=== PATIENT | male | born 1940 | race Caucasian/White ===

== ENCOUNTER → 2017-12-28 09:35 | Outpatient (CLI) | payer MEDICARE, OTHER, SELFPAY ==
[2017-12-28 10:22] LABS: INR 1.3 (0.9-1.3); Prothrombin Time 14.7 SECONDS (10.1-12.7)
[2017-12-28 10:24] LABS: PTT Partial Thromboplastin Tim 30 SECONDS (26.4-36.2)
[2017-12-28 10:33] LABS: Alanine Aminotransferase 58 IU/L (21-72); Aspartate Aminotransferase 45 IU/L (17-59); Blood Urea Nitrogen 18 mg/dL (9-20); Calcium 8.9 mg/dL (8.4-10.2); Carbon Dioxide 30 mmol/L (22-32); Chloride 105 mmol/L (98-107); Cholesterol 127 mg/dL (140-199); Estimated Glomerular Filt Rate > 60.0 mL/min (>60); Glucose 118 mg/dL (80-110); HDL Cholesterol 44 mg/dL (40-60); HEMOLYSIS < 15 (0-50); LDL Cholesterol Calculated 62 mg/dL (<100); Potassium 4.2 mmol/L (3.4-5.1); Sodium 144 mmol/L (137-145); Triglycerides 104 mg/dL (35-150)
[2017-12-28 10:47] LABS: Free T3, Triiodothyronine Free 3.37 pg/mL (2.77-5.27)
[2017-12-28 11:01] LABS: TSH w/ Reflex to FT4 2.05 uIU/mL (0.47-4.68)
== END ==
PROVIDERS: Family Provider Internal Medicine Cardiovascular Disease; PCP Internal Medicine; Visit Provider Internal Medicine
DX: E78.00 Pure hypercholesterolemia, unspecified (principal); E04.1 Nontoxic single thyroid nodule; I10 Essential (primary) hypertension; I82.409 Acute embolism and thrombosis of unspecified deep veins of unspecified lower extremity
CPT/HCPCS: 36415; 80048; 80061; 84443; 84450; 84460; 84481; 85610; 85730

== ENCOUNTER → 2017-12-30 09:33 | Outpatient (CLI) | payer MEDICARE, OTHER, SELFPAY ==
--- NOTE | 2017-12-30 | DI.US.S_ITS ---
PROCEDURE: US FINE NEEDLE ASPIRATION INDICATIONS: THYROID NODULE TECHNIQUE: The indications, alternatives, benefits, risks, and complications of the procedure were explained to the patient. Written informed consent was obtained and placed in the chart. The thyroid region was examined sonographically and a site was chosen for ultrasound guided percutaneous sampling. The skin was prepared and draped in the usual fashion, and anesthetized with 1% lidocaine infiltrated from the skin down to the thyroid gland. Multiple passes were then performed, with contents emptied into an appropriate pathology specimen container. A bandage was applied to the area of access at completion of the study. COMPARISON: None. FINDINGS: Location(s) of lesion(s) sampled: Isoechoic right thyroid nodule Junction: 22 and 25 gauge hypodermic needles. Number of passes: 12 Medications: 1% lidocaine for local anaesthesia. Complications: None. IMPRESSION: Successful ultrasound-guided thyroid nodule fine needle aspiration, with cytology results pending. Please see chart below for management recommendations based on cytology results. [facility] ReportingRecommendationsNon-diagnostic* Repeat US-guided FNA, with on-site cytology evaluation if possible. * Repeated non-diagnostic nodules without high suspicion US features: close observation vs surgical consult. * Consider surgery if nodule has high suspicion US features, grows >20% in 2 dimensions on followup, or patient has clinical risk factors for malignancy. Benign* If nodule has high suspicion US features: repeat US and FNA within 12 months. * If nodule has low to intermediate suspicion US features: repeat US at 12-24 months. If nodule grows (20% increase in at least 2 dimensions, with minimal increase of 2 mm or >50% change in volume), or development of new suspicious US features, then repeat FNA or continue followup. * If nodule has very low suspicion US features: followup US at >24 months. Atypia of undetermined significance, follicular lesion of undetermined significanceRepeat FNA, molecular testing, followup US, or surgical consult.Follicular neoplasm, suspicious for follicular neoplasmSurgical consult; also consider molecular testing. Suspicious for malignancySurgical consult.MalignantSurgical consult. Dictated by: Kike Coles M.D. on 12/30/2017 at 12:24 Approved by: Kike Coles M.D. on 12/30/2017 at 12:27
--- NOTE | 2017-12-30 | PATH_ITS ---
Note [facility] Accession Number: [id number] TESTS RESULT FLAG UNITS REF RANGE LAB Clinician Provided Cytology Information No. of containers..01 ThinPrep Vial No. of containers..20 Previously Prepared Cytology Slide RIGHT THYROID NODULE DIAGNOSIS: 02 RIGHT THYROID NODULE INCONCLUSIVE. ATYPIA OF UNDETERMINED SIGNIFICANCE. 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 Pathologist ICD10: 02 R89.6, E04.1 02 Chani Vega MD, Pathologist NPI- [id number] Sam Spangler, Open Claims Representative ([facility]) 01 60 CC, PALE YELLOW, CLEAR RECEIVED: 9 ALCOHOL FIXED AND 11 QUICK STAINED SLIDES WITH 1RNA VIAL FOR FURTHER TESTING. /VDU FLAG LEGEND: L-Low Normal,H-High Normal,LL-Alert Low,HH-Alert High <-Panic Low,>-Panic High,A-Abnormal,AA-Critical Abnormal Performed at: 01 =Z [facility] [address], [place] [address] Vlad Fountain MD, 02 [facility] [address] [place] [id number] Dominic Baca MD, Performed at: 01 [facility] [address], [place], [place] [id number] MD Vlad Fountain MD Phone: [phone]
== END ==
PROVIDERS: Family Provider Internal Medicine Cardiovascular Disease; PCP Internal Medicine; Visit Provider Internal Medicine
DX: E04.1 Nontoxic single thyroid nodule (principal)
CPT/HCPCS: 10022; 76942

== ENCOUNTER → 2019-01-11 14:40 | Outpatient (ROUT) | payer MEDICARE, OTHER, SELFPAY ==
[2019-01-11 15:03] LABS: Alanine Aminotransferase 49 IU/L (<50); Aspartate Aminotransferase 50 IU/L (17-59); BUN Creatinine Ratio 21.3 (6-22); Blood Urea Nitrogen 17 mg/dL (9-20); Calcium 9.7 mg/dL (8.4-10.2); Carbon Dioxide 29 mmol/L (22-32); Chloride 104 mmol/L (98-107); Cholesterol 140 mg/dL (140-199); Estimated Glomerular Filt Rate > 60.0 mL/min (>60); Glucose 130 mg/dL (80-110); HDL Cholesterol 51 mg/dL (40-60); HEMOLYSIS < 15 (0-50); LDL Cholesterol Calculated 72 mg/dL (<100); Potassium 4.8 mmol/L (3.4-5.1); Sodium 141 mmol/L (137-145); Triglycerides 83 mg/dL (35-150)
[2019-01-11 15:30] LABS: Prostate Specific Antigen Scrn 0.404 ng/mL (0.1-4.0)
== END ==
PROVIDERS: Family Provider Internal Medicine Cardiovascular Disease; PCP Internal Medicine; Visit Provider Internal Medicine
DX: Z12.5 Encounter for screening for malignant neoplasm of prostate (principal); I10 Essential (primary) hypertension; E78.00 Pure hypercholesterolemia, unspecified
CPT/HCPCS: 80048; 80061; 84450; 84460; G0103

== ENCOUNTER → 2019-05-22 10:21 | Outpatient (CLI) | payer MEDICARE, OTHER, SELFPAY ==
--- NOTE | 2019-05-22 | DI.US.S_ITS ---
PROCEDURE: US THYROID INDICATIONS: NONTOXIC SINGLE THYROID NODULE TECHNIQUE: Real-time scanning was performed of the thyroid gland, with image documentation. COMPARISON: [facility], US, US FINE NEEDLE ASPIRATION, 12/30/2017, 10:05. FINDINGS: Right: Thyroid lobe measures 5.3 x 2.4 x 2.7 cm, and is homogeneous in echotexture. Left: Thyroid lobe measures 5.7 x 1.9 x 2 cm, and is homogenous in echotexture. Isthmus: 4 mm thick. Nodule number: 1 Location: Right mid thyroid laterally Size: 2.3 by 1 by 1.8 cm, previously measuring 3.3 x 1.6 x 2 cm. Composition: Solid Echogenicity: Hypoechoic Shape: wider than tall. Margins: Ill-defined Echogenic foci: None Total points: 4 ACR TI-RADS category: 4 Nodule number: 2 Location: Left inferior medial thyroid Size: 0.6 x 0.6 x 0.4 cm. Composition: Predominantly cystic Echogenicity: Hypoechoic Shape: wider than tall. Margins: Smooth Echogenic foci: None Total points: 2 ACR TI-RADS category: 2 IMPRESSION: Persistent right thyroid lesion, which was previously biopsied with inconclusive results. As clinically appropriate, please consider a repeat ultrasound guided fine needle aspiration of this lesion. ACR TI-RADS definitions and recommendations: TI-RADS 1 (benign): 0 points. FNA not needed. TI-RADS 2 (not suspicious): 2 points. FNA not needed. TI-RADS 3 (mildly suspicious): 3 points. * FNA if 2.5 cm or larger, follow up if 1.5 cm or larger (at 1, 3, and 5 years). TI-RADS 4 (moderately suspicious): 4-6 points. * FNA if 1.5 cm or larger, follow up if 1 cm or larger (at 1, 2, 3, and 5 years). TI-RADS 5 (highly suspicious): 7 points or more. * FNA if 1 cm or larger, follow up if 0.5 cm or larger (every year for 5 years). Dictated by: Ed Gar M.D. on 05/22/2019 at 15:56 Approved by: Ed Gar M.D. on 05/22/2019 at 15:59
== END ==
PROVIDERS: Family Provider Internal Medicine Cardiovascular Disease; PCP Internal Medicine; Referring Provider Specialist/Technologist, Other Surgical Technologist; Visit Provider Specialist/Technologist, Other Surgical Technologist
DX: E04.2 Nontoxic multinodular goiter (principal)
CPT/HCPCS: 76536

== ENCOUNTER → 2019-08-29 09:25 | Outpatient (CLI) | payer MEDICARE, OTHER, SELFPAY ==
[2019-08-29 10:08] LABS: Hemoglobin A1C% w Est Avg Glu 6.1 % (4.0-6.0)
[2019-08-29 11:16] LABS: Alanine Aminotransferase 41 IU/L (<50); Albumin 4.1 g/dL (3.5-5.0); Albumin Globulin Ratio 1.5 (1.0-2.8); Alkaline Phosphatase 61 U/L (38-126); Aspartate Aminotransferase 41 IU/L (17-59); Bilirubin Total 1.2 mg/dL (0.2-1.3); Blood Urea Nitrogen 18 mg/dL (9-20); Carbon Dioxide 26 mmol/L (22-32); Chloride 107 mmol/L (98-107); Cholesterol 137 mg/dL (140-199); Estimated Glomerular Filt Rate > 60.0 mL/min (>60); Globulin 2.7 g/dL (1.7-4.1); Glucose 122 mg/dL (80-110); HDL Cholesterol 48 mg/dL (40-60); HEMOLYSIS < 15 (0-50); LDL Cholesterol Calculated 63 mg/dL (<100); Potassium 4.3 mmol/L (3.4-5.1); Sodium 140 mmol/L (137-145); Total Protein 6.8 g/dL (6.3-8.2); Triglycerides 128 mg/dL (35-150)
== END ==
PROVIDERS: Family Provider Internal Medicine Cardiovascular Disease; PCP Internal Medicine; Referring Provider Internal Medicine; Visit Provider Internal Medicine
DX: E78.5 Hyperlipidemia, unspecified (principal); I10 Essential (primary) hypertension; R73.01 Impaired fasting glucose
CPT/HCPCS: 36415; 80053; 80061; 83036

== ENCOUNTER → 2020-03-21 09:36 | Outpatient (CLI) | payer MEDICARE, OTHER, SELFPAY ==
[2020-03-21 10:49] LABS: Alanine Aminotransferase 48 IU/L (<50); Albumin 4.2 g/dL (3.5-5.0); Albumin Globulin Ratio 1.4 (1.0-2.8); Alkaline Phosphatase 63 U/L (38-126); Aspartate Aminotransferase 40 IU/L (17-59); Bilirubin Total 1.5 mg/dL (0.2-1.3); Blood Urea Nitrogen 27 mg/dL (9-20); Calcium 8.9 mg/dL (8.4-10.2); Carbon Dioxide 30 mmol/L (22-32); Chloride 105 mmol/L (98-107); Cholesterol 131 mg/dL (140-199); Estimated Glomerular Filt Rate > 60.0 mL/min (>60); Globulin 2.9 g/dL (1.7-4.1); Glucose 141 mg/dL (80-110); HDL Cholesterol 45 mg/dL (40-60); HEMOLYSIS < 15 (0-50); LDL Cholesterol Calculated 60 mg/dL (<100); Potassium 4.3 mmol/L (3.4-5.1); Sodium 138 mmol/L (137-145); Total Protein 7.1 g/dL (6.3-8.2); Triglycerides 130 mg/dL (35-150)
== END ==
PROVIDERS: Family Provider Internal Medicine Cardiovascular Disease; PCP Internal Medicine; Referring Provider Internal Medicine; Visit Provider Internal Medicine
DX: R73.01 Impaired fasting glucose (principal); E78.5 Hyperlipidemia, unspecified
CPT/HCPCS: 36415; 80053; 80061

== ENCOUNTER → 2020-04-11 10:18 | Outpatient (CLI) | payer MEDICARE, OTHER, SELFPAY ==
[2020-04-11 11:05] LABS: Hemoglobin A1C% w Est Avg Glu 6.4 % (4.0-6.0)
[2020-04-11 11:23] LABS: Glucose 140 mg/dL (80-110)
[2020-04-12 09:08] LABS: PSA Free % 52.5 % (.); PSA, Total 0.4 ng/mL (0.0-4.0)
== END ==
PROVIDERS: Family Provider Internal Medicine Cardiovascular Disease; PCP Internal Medicine; Referring Provider Internal Medicine; Visit Provider Internal Medicine
DX: R73.01 Impaired fasting glucose (principal); Z12.5 Encounter for screening for malignant neoplasm of prostate
CPT/HCPCS: 36415; 82947; 83036; 84153; 84154; G0103

== ENCOUNTER → 2020-06-11 09:37 | Outpatient (CLI) | payer MEDICARE, OTHER, SELFPAY ==
[2020-06-11 10:53] LABS: Hemoglobin A1C% w Est Avg Glu 5.6 % (4.0-6.0)
[2020-06-11 10:55] LABS: Alanine Aminotransferase 50 IU/L (<50); Albumin 4.4 g/dL (3.5-5.0); Albumin Globulin Ratio 1.5 (1.0-2.8); Alkaline Phosphatase 65 U/L (38-126); Aspartate Aminotransferase 49 IU/L (17-59); BUN Creatinine Ratio 31.7 (6-22); Bilirubin Total 0.8 mg/dL (0.2-1.3); Blood Urea Nitrogen 33 mg/dL (9-20); Calcium 9.2 mg/dL (8.4-10.2); Carbon Dioxide 23 mmol/L (22-32); Chloride 106 mmol/L (98-107); Estimated Glomerular Filt Rate > 60.0 mL/min (>60); Globulin 2.9 g/dL (1.7-4.1); Glucose 105 mg/dL (80-110); HEMOLYSIS < 15 (0-50); Potassium 4.6 mmol/L (3.4-5.1); Sodium 139 mmol/L (137-145); Total Protein 7.3 g/dL (6.3-8.2)
[2020-06-12 07:56] LABS: PSA, Total 0.4 ng/mL (0.0-4.0)
== END ==
PROVIDERS: Family Provider Internal Medicine Cardiovascular Disease; PCP Internal Medicine; Referring Provider Internal Medicine; Visit Provider Internal Medicine
DX: R53.82 Chronic fatigue, unspecified (principal); E11.9 Type 2 diabetes mellitus without complications; N40.0 Benign prostatic hyperplasia without lower urinary tract symptoms; I10 Essential (primary) hypertension
CPT/HCPCS: 36415; 80053; 83036; 84153; 84154

== ENCOUNTER → 2020-07-07 14:23 | Outpatient (CLI) | payer MEDICARE, OTHER, SELFPAY ==
[2020-07-07 18:03] LABS: COVID19 -Nasal RAPID Negative (Negative)
== END ==
PROVIDERS: Family Provider Internal Medicine Cardiovascular Disease; PCP Internal Medicine; Visit Provider Student in an Organized Health Care Education/Training Program
DX: Z01.812 Encounter for preprocedural laboratory examination (principal); Z20.822 Contact with and (suspected) exposure to COVID-19
CPT/HCPCS: 87635; C9803

== ENCOUNTER 2020-07-09 08:35 | Day surgery (SDC) | payer MEDICARE, OTHER, SELFPAY ==
--- NOTE | 2020-07-09 | PATH_ITS ---
[facility] Accession Number: [id number] . 01 Material submitted: . sigmoid colon - SIGMOID POLYP . 02 Diagnosis: Sigmoid Colon, Polyp, Biopsy: Tubular adenoma. MRV 07/14/2020 1521 Local . 02 Electronically signed: . Christa Webb MD, Pathologist NPI- [id number] . 01 Gross description: . The specimen is received in formalin labeled sigmoid polyp and consists of a 0.3 x 0.2 x 0.2 cm ro-pink fragment of soft tissue, which is entirely submitted in cassette A1. ([id number]) /[facility] 07/10/2020 1650 Local . 02 Pathologist provided ICD-10: D12.5 . 02 CPT . 027652 Performed at: 01 [facility] [address] [id number] MD Vlad Fountain MD Phone: [phone] Performed at: 02 [facility] [place] [address] [address] [place], [place] [id number] MD Christa Webb MD Phone: [phone]
[2020-07-09 09:00] VITALS: BP 109/69; PULSE 75; RESP 18; TEMP 36.4; O2SAT 99; BMI 29.0
[2020-07-09 09:45] VITALS: BMI 29.0
--- NOTE | 2020-07-09 10:07 | PM.PREOP ---
Pre-operative Note COVID-19 COVID-19 status: Negative Interval Note History & Physical reviewed/Exam performed by Physician: Yes Changes to H&P: No ASA Class (for procedural sedation): II
--- NOTE | 2020-07-09 10:08 | PM.OP.ENDO ---
Operative Date/Time/Diagnoses Date of procedure: 07/09/20 Pre-op diagnosis: See indication and findings Procedure & Clinicians Study performed: Colonoscopy Same procedure as scheduled: Yes Indications: History of polyps Surgeon: Bibiana Eagle Procedure Notes Procedure in detail: After informed consent was obtained the patient was placed in left lateral decubitus position. The video colonoscope was introduced the rectum slowly advanced cecum. Ic valve was intubated. Preparation was good. On slow withdrawal mucosa was carefully examined. The scope was removed. The patient tolerated procedure well. Blood loss none Complications none Sedation Total sedation time 14 minutes Versed 5 mg fentanyl 100 mg IV titration Findings 1. Pancolonic diverticulosis more prominent on the left side. One short segment in the upper sigmoid was fairly adhesed and had erythema focally consistent with diverticular colitis. 2. 4 mm polyp in sigmoid colon Jumbo biopsy removed completely 3. Normal terminal ileum though IC valve was somewhat erythematous Will be in touch regarding biopsies but this is Mr. Mcarthur this last colonoscopy. He will go back on Coumadin tomorrow
[2020-07-09] MEDS: MIDAZOLAM 5 MG/5 ML VIAL IV (10:11)
[2020-07-09] MEDS: fentaNYL 250 MCG/5 ML INJ IV (10:11)
[2020-07-09 10:32] VITALS: BP 97/51; PULSE 68; RESP 12; TEMP 36.2; O2SAT 96
[2020-07-09 10:37] VITALS: BP 88/48; PULSE 711; RESP 16; O2SAT 96
[2020-07-09 10:42] VITALS: BP 99/54; PULSE 67; RESP 14; O2SAT 95
[2020-07-09 10:47] VITALS: BP 96/49; PULSE 69; RESP 20; TEMP 36.3; O2SAT 96
[2020-07-09 10:55] VITALS: BP 99/46; PULSE 67; RESP 16; TEMP 36.4; O2SAT 97
--- NOTE | 2020-10-01 08:14 | PM.HP.1 ---
History of Present Illness History of Present Illness Date Patient Seen: 07/09/20 Chief complaint: SDC Narrative: History of adenomatous colon polyps Patient History Family & Social History Social History: household members spouse Tobacco & Substance use: Smoking Status Former smoker alcohol intake current alcohol intake frequency a few times a week Substance Use Type does not use Meds Home Medications and Allergies Home Medications Medication Instructions Recorded Confirmed Type amlodipine 10 mg tablet (Norvasc) 10 mg PO DAILY 07/09/20 07/09/20 History aspirin 81 mg tablet 81 mg PO DAILY 07/09/20 07/09/20 History atorvastatin 20 mg tablet (Lipitor) 20 mg PO DAILY 07/09/20 07/09/20 History losartan 100 mg tablet (Cozaar) 100 mg PO DAILY 07/09/20 07/09/20 History metformin 500 mg tablet,extended 1,000 mg PO DAILY 07/09/20 07/09/20 History release 24 hr (Glucophage XR) metoprolol succinate 50 mg 50 mg PO DAILY 07/09/20 07/09/20 History tablet,extended release 24 hr (Toprol XL) warfarin 5 mg tablet (Jantoven) 5 mg PO DAILY 07/09/20 07/09/20 History Allergies Allergy/AdvReac Type Severity Reaction Status Date / Time No Known Drug Allergies Allergy Verified 07/09/20 08:56 Exam Vital Signs (past 8 hours): Oxygen Delivery Method Room Air Narrative Exam Narrative: Oropharynx free of lesions Chest clear to auscultation percussion Cardiac exam reveals no S3 or murmur Assessment & Plan Assessment & Plan narrative: History of adenomatous colon polyps need for follow-up colonoscopy. Risks, benefits, alternatives have been explained.
== END 2020-07-09 11:00 | disposition home or self-care (01) ==
PROVIDERS: Family Provider Internal Medicine Cardiovascular Disease; PCP Internal Medicine; Referring Provider Internal Medicine Gastroenterology; Visit Provider Internal Medicine Gastroenterology
PROC: 0DJD8ZZ Inspection of Lower Intestinal Tract, Via Natural or Artificial Opening Endoscopic (ICD-10-PCS; CPT 45378; principal; 2020-07-09 10:00)
DX: Z12.11 Encounter for screening for malignant neoplasm of colon (principal); Z86.010 Personal history of colon polyps; K57.30 Diverticulosis of large intestine without perforation or abscess without bleeding; I10 Essential (primary) hypertension; E78.5 Hyperlipidemia, unspecified; Z79.01 Long term (current) use of anticoagulants; Z86.718 Personal history of other venous thrombosis and embolism; D12.5 Benign neoplasm of sigmoid colon
CPT/HCPCS: 45380; 85610; J2250; J3010

== ENCOUNTER 2022-09-28 12:51 | Emergency (ER) | payer MEDICARE, OTHER, SELFPAY ==
[2022-09-28 13:41] VITALS: BP 118/59; PULSE 78; RESP 16; TEMP 36.3; O2SAT 100; BMI 29.1
--- NOTE | 2022-09-28 13:49 | DI.CT.S_ITS ---
PROCEDURE: CT HEAD/BRAIN WO CON INDICATIONS: fall/thinners TECHNIQUE: Noncontrast 4.5 mm thick angled axial sections acquired from the foramen magnum to the vertex, with coronal and sagittal reformats. For radiation dose reduction, the following was used: automated exposure control, adjustment of mA and/or kV according to patient size. COMPARISON: None. FINDINGS: Image quality: Excellent. CSF spaces: Basal cisterns are patent. No extra-axial fluid collections. The ventricles are symmetric in size and shape. Brain: No intracranial bleeds or masses. There is cerebral volume loss for age, with resultant ventricular and sulcal prominence. There are periventricular and deep white matter chronic small vessel ischemic changes. There is intracranial internal carotid artery atherosclerosis. 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 Skull and face: Calvarium and visualized facial bones appear intact, without suspicious lesions. Sinuses: Visualized sinuses and mastoids are clear. IMPRESSION: 1. No acute intracranial process. 2. Mild to moderate atrophy and chronic microvascular ischemic changes. Dictated by: Korina Peterson M.D. on 09/28/2022 at 14:44 Approved by: Korina Peterson M.D. on 09/28/2022 at 14:44
--- NOTE | 2022-09-28 13:49 | DI.CT.S_ITS ---
PROCEDURE: CT CHEST ABD PEL W CON INDICATIONS: fall/thinners TECHNIQUE: After the administration of intravenous contrast, axial sections acquired from the supraclavicular neck to the pubic symphysis. Coronal and sagittal reformats were performed. For radiation dose reduction, the following was used: automated exposure control, adjustment of mA and/or kV according to patient size. [facility] ANGIO AORTA RUNOFF, 11/28/2017, 15:24. FINDINGS: Image quality: Excellent. CHEST: Lower Neck: No enlarged lymph nodes. Thyroid: Within normal limits. Axillae: No enlarged lymph nodes. Chest Wall: Unremarkable. Lungs and Airways: No consolidation or suspicious nodules. Pleura: No pneumothorax or pleural effusions. Heart: Heart size is normal. No pericardial effusion. Thoracic Vessels: The aorta and pulmonary arteries demonstrate normal size. Mediastinum and Leeann: No enlarged lymph nodes. Esophagus: No wall thickening. Minimal hiatal hernia. ABDOMEN: Liver: Hepatic steatosis is present. Gallbladder: Prominent luminal stone without wall thickening. Biliary ducts: Unremarkable. Pancreas: Unremarkable. Spleen: Unremarkable. Adrenal Glands: Unremarkable. Kidneys and Ureters: Unremarkable. Stomach and Bowel: Stomach, small bowel loops, and colon are nonobstructive. Prominent colonic diverticula are present. Peritoneum: No abnormal intraperitoneal fluid. No free air. Ventral Wall: No hernia. Abdominal Nodes: No retroperitoneal or mesenteric adenopathy by size criteria. Vessels: Aortoiliac stent is present with distal aneurysmal dilation measuring 7.4 x 8.6 cm compared to 6.7 x 7.3 cm in 2018. . There is asymmetric decreased opacification within the left iliac stent, unchanged. There is distal reconstitution of flow within the left internal iliac artery. There is occlusion extending to the femoral artery. Fem-fem bypass graft is present appearing patent which anastomosis with the proximal left superficial femoral artery. PELVIS: Pelvic Organs: Unremarkable. Bladder: Unremarkable. Pelvic Nodes: No enlarged lymph nodes. Miscellaneous: No inguinal hernias are seen. Bones: Unremarkable. IMPRESSION: 1. Diverticulosis. 2. 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 3. 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 There is no evidence of acute hemorrhage. Dictated by: Korina Peterson M.D. on 09/28/2022 at 14:49 Approved by: Korina Peterson M.D. on 09/28/2022 at 14:58
[2022-09-28 14:11] LABS: Add Manual Diff / Slide Review NO; Basophils Absolute Auto 0 /uL (0-100); Basophils Percent Auto 0.4 % (0-2); Eosinophils Absolute Auto 100 /uL (0-450); Eosinophils Percent Auto 2.4 % (2-4); Hematocrit 38.9 % (41-53); Hemoglobin 13.3 g/dL (13.5-17.5); Lymphocytes Absolute Auto 1800 /uL (1100-4500); Lymphocytes Percent Auto 36.7 % (25-40); Mean Corpuscular HGB Conc 34.2 % (30-36); Mean Corpuscular Hemoglobin 33.7 PG (26-34); Mean Corpuscular Volume 98.6 fL (80-100); Monocytes Absolute Auto 400 /uL (0-900); Monocytes Percent Auto 8.4 % (3-14); Neutrophils Absolute Auto 2500 /uL (1500-7000); Neutrophils Percent Auto 52.1 % (50-75); Platelet Count 186 X10^3/uL (150-400); Red Blood Cell Count 3.95 X10^6/uL (4.5-5.9); Red Cell Distribution Width 12.5 % (11.6-14.8); White Blood Cell Count 4.8 X10^3/uL (4.5-11.0)
[2022-09-28 14:16] LABS: INR 2.5 (0.9-1.3); Prothrombin Time 28.7 SECONDS (10.1-12.7)
[2022-09-28 14:22] LABS: Alanine Aminotransferase 82 IU/L (<50); Albumin 4.1 g/dL (3.5-5.0); Albumin Globulin Ratio 1.3 (1.0-2.8); Alkaline Phosphatase 69 U/L (38-126); Aspartate Aminotransferase 92 IU/L (17-59); BUN Creatinine Ratio 28.7 (6-22); Bilirubin Total 1.1 mg/dL (0.2-1.3); Blood Urea Nitrogen 31 mg/dL (9-20); Calcium 8.6 mg/dL (8.4-10.2); Carbon Dioxide 23 mmol/L (22-32); Chloride 107 mmol/L (98-107); Estimated Glomerular Filt Rate > 60 mL/min (>60); Globulin 3.1 g/dL (1.7-4.1); Glucose 182 mg/dL (80-110); HEMOLYSIS 15 (0-50); Sodium 140 mmol/L (137-145); Total Protein 7.2 g/dL (6.3-8.2)
[2022-09-28 17:05] VITALS: BP 117/60; PULSE 70; RESP 18; O2SAT 99
--- NOTE | 2022-09-28 17:13 | ED.FALL ---
HPI - Fall <Michael Sun PA-C - Last Filed: 09/28/22 17:19> General Chief Complaint: Fall Stated Complaint: fell T-7/states he's on blood thinners Time Seen by Provider: 09/28/22 17:03 Source: patient Mode of arrival: Ambulatory History of Present Illness HPI Narrative: 82-year-old male on Coumadin presents to the ED status post a fall sustained 1 week prior to arrival. Patient states that that he was on vacation in [place] when he had a mechanical fall after misjudged seeing some steps, tumble down about 10 stairs. Patient does endorse a head strike, denies loss of consciousness. Patient states that he is had some bruises here and there, however he is feeling completely fine currently. Patient has a small abrasion that he sustained to his left forearm which is healing well. Patient denies headache, neck pain, nausea, vomiting, lightheadedness, dizziness, chest pain, shortness of breath, abdominal pain, syncope. Patient came to the ED today since his family has been pressuring him to get himself checked out after the fall. Related Data Home Medications Medication Instructions Recorded Confirmed amlodipine 10 mg tablet (Norvasc) 10 mg PO DAILY 07/09/20 07/09/20 aspirin 81 mg tablet 81 mg PO DAILY 07/09/20 07/09/20 atorvastatin 20 mg tablet (Lipitor) 20 mg PO DAILY 07/09/20 07/09/20 losartan 100 mg tablet (Cozaar) 100 mg PO DAILY 07/09/20 07/09/20 metformin 500 mg tablet,extended 1,000 mg PO DAILY 07/09/20 07/09/20 release 24 hr (Glucophage XR) metoprolol succinate 50 mg 50 mg PO DAILY 07/09/20 07/09/20 tablet,extended release 24 hr (Toprol XL) warfarin 5 mg tablet (Jantoven) 5 mg PO DAILY 07/09/20 07/09/20 Allergies Allergy/AdvReac Type Severity Reaction Status Date / Time No Known Drug Allergies Allergy Verified 07/09/20 08:56 Review of Systems <Michael Sun PA-C - Last Filed: 09/28/22 17:19> Review of Systems ROS Unobtainable: All systems reviewed & are unremarkable except as noted in HPI and below Constitutional Constitutional: Denies chills, Denies fatigue, Denies fever(s), Denies frequent falls, Denies lethargy and Denies weakness Eyes Eyes: Denies change in vision, Denies eye discharge, Denies irritation and Denies loss of vision ENT Ears, Nose, Mouth, and Throat: Denies change in voice, Denies dizziness, Denies neck pain, Denies sore throat and Denies throat swelling Cardiovascular Cardiovascular: Denies chest pain, Denies irregular heart rhythm, Denies lightheadedness, Denies palpitations, Denies dyspnea, Denies dyspnea on exertion and Denies orthopnea Respiratory Respiratory: Denies cough, Denies dyspnea, Denies dyspnea on exertion and Denies wheezing Gastrointestinal Gastrointestinal: Denies abdominal pain, Denies change in bowel habits, Denies diarrhea, Denies nausea and Denies vomiting Genitourinary Genitourinary: Denies hematuria, Denies flank pain, Denies urinary incontinence and Denies urinary urgency Musculoskeletal Musculoskeletal: Denies back pain, Denies muscle weakness, Denies neck pain, Denies numbness and Denies tingling Integumentary/Breasts Skin/Breast: Denies pruritus, Denies erythema, Denies rash and Denies wounds Comments: Forearm abrasion Neurologic Neurologic: Denies behavioral changes, Denies confusion, Denies dizziness, Denies frequent falls, Denies loss of vision, Denies numbness, Denies tingling and Denies weakness Psychiatric Psychiatric: Denies anxiety, Denies behavioral changes, Denies confusion, Denies depression, Denies homicidal ideation and Denies suicidal ideation Endocrine Endocrine: Denies fatigue, Denies flushing and Denies palpitations Hematologic/Lymphatic Hematologic/Lymphatic: Denies easy bruising Allergic/Immunologic Allergic/Immunologic: Denies urticaria, Denies throat swelling and Denies wheezing Patient History <Michael Sun PA-C - Last Filed: 09/28/22 17:19> Social History household members: spouse Smoking Status: Former smoker alcohol intake: current Smoking Status: Former smoker alcohol intake frequency: a few times a week Substance Use Type: does not use Exam <Michael Sun PA-C - Last Filed: 09/28/22 17:19> Narrative Exam Narrative: Const General:?cooperative, healthy appearing and comfortable HENMI Head:?normal to inspection Ears:?hearing grossly normal bilaterally Nose:?external nose normal Face and sinus:?normal facial exam and sinuses nontender Mouth:?oral mucosae normal Throat:?posterior oropharynx normal Eyes General:?appearance normal, both eyes and all related structures Neck Neck:?normal visual inspection and no lymphadenopathy noted Resp Effort & Inspection:?normal respiratory effort Auscultation:?clear to auscultation bilaterally Cardio Rate:?regular rate Rhythm:?regular rhythm Integumentary There is a small abrasion to the left forearm that appears to be healing well without signs of infection. Neuro General:?patient alert, patient awake and patient oriented x3 Initial Vital Signs Initial Vital Signs: Vital Signs Temperature 97.4 F L 09/28/22 13:41 Pulse Rate 78 09/28/22 13:41 Respiratory Rate 16 09/28/22 13:41 Blood Pressure 118/59 L 09/28/22 13:41 Pulse Oximetry 100 09/28/22 13:41 Oxygen Delivery Method Room Air 09/28/22 13:41 <Vernon Caballero MD - Last Filed: 09/29/22 07:18> Initial Vital Signs Initial Vital Signs: Vital Signs Temperature 97.4 F L 09/28/22 13:41 Pulse Rate 78 09/28/22 13:41 Respiratory Rate 16 09/28/22 13:41 Blood Pressure 118/59 L 09/28/22 13:41 Pulse Oximetry 100 09/28/22 13:41 Oxygen Delivery Method Room Air 09/28/22 13:41 Course <Michael Sun PA-C - Last Filed: 09/28/22 17:19> Orders Ordered: ED Orders 09/28/22 13:49 CT chest abd pel w con Stat CT head/brain wo con Stat 09/28/22 13:55 Complete Blood Count AUTO DIFF Stat Comprehensive Metabolic Panel Stat Prothrombin Time INR Stat Vital Signs Vital signs: Vital Signs - 8 hr 09/28/22 13:41 09/28/22 17:05 Temperature 97.4 F L Pulse Rate 78 70 Respiratory Rate 16 18 Blood Pressure 118/59 L 117/60 Pulse Oximetry 100 99 Oxygen Delivery Method Room Air Room Air <Vernon Caballero MD - Last Filed: 09/29/22 07:18> Orders Ordered: ED Orders 09/28/22 13:49 CT chest abd pel w con Stat CT head/brain wo con Stat 09/28/22 13:55 Complete Blood Count AUTO DIFF Stat Comprehensive Metabolic Panel Stat Prothrombin Time INR Stat Vital Signs Vital signs: Vital Signs - 8 hr 09/28/22 13:41 09/28/22 17:05 Temperature 97.4 F L Pulse Rate 78 70 Respiratory Rate 16 18 Blood Pressure 118/59 L 117/60 Pulse Oximetry 100 99 Oxygen Delivery Method Room Air Room Air MDM - Fall <Michael Sun PA-C - Last Filed: 09/28/22 17:19> Lab Data 09/28/22 13:55 09/28/22 13:55 Labs: Lab Results 09/28/22 09/28/22 09/28/22 Range/Units 13:55 13:55 13:55 WBC 4.8 (4.5-11.0) X10^3/uL RBC 3.95 L (4.5-5.9) X10^6/uL Hgb 13.3 L (13.5-17.5) g/dL Hct 38.9 L (41-53) % MCV 98.6 (80-100) fL MCH 33.7 (26-34) PG MCHC 34.2 (30-36) % RDW 12.5 (11.6-14.8) % Plt Count 186 (150-400) X10^3/uL Neut % (Auto) 52.1 (50-75) % Lymph % (Auto) 36.7 (25-40) % [place] % (Auto) 8.4 (3-14) % Eos % (Auto) 2.4 (2-4) % Baso % (Auto) 0.4 (0-2) % Neut # (Auto) 2500 (1192-5181) /uL Lymph # (Auto) 1800 (9082-8982) /uL [place] # (Auto) 400 (0-900) /uL Eos # (Auto) 100 (0-450) /uL Baso # (Auto) 0 (0-100) /uL PT 28.7 H (10.1-12.7) SECONDS INR 2.5 H (0.9-1.3) Sodium 140 (137-145) mmol/L Potassium 4.0 (3.4-5.1) mmol/L Chloride 107 (98-107) mmol/L Carbon Dioxide 23 (22-32) mmol/L BUN 31 H (9-20) mg/dL Creatinine 1.08 (0.66-1.25) mg/dL Estimated GFR > 60 (>60) mL/min BUN/Creatinine Ratio 28.7 H (6-22) Glucose 182 H (80-110) mg/dL Calcium 8.6 (8.4-10.2) mg/dL Total Bilirubin 1.1 (0.2-1.3) mg/dL AST 92 H (17-59) IU/L ALT 82 H (<50) IU/L Alkaline Phosphatase 69 (38-126) U/L Total Protein 7.2 (6.3-8.2) g/dL Albumin 4.1 (3.5-5.0) g/dL Globulin 3.1 (1.7-4.1) g/dL Albumin/Globulin Ratio 1.3 (1.0-2.8) MDM Narrative Medical decision making narrative: 82-year-old male on Coumadin presents to the ED status post a fall sustained 1 week prior to arrival. While it is reassuring that the patient has been symptom free for a week since the fall, there is still concern since patient is on Coumadin. CT head, CT chest abdomen pelvis were obtained to rule out internal bleeding bleeding, fractures. Imaging without acute findings. Patient's abrasion is healing well without signs of infection. Discussed signs of infection, ED return precautions with patient. Patient verbalized understanding. Medical records reviewed: Yes <Vernon Caballero MD - Last Filed: 09/29/22 07:18> Lab Data Labs: Lab Results 09/28/22 09/28/22 09/28/22 Range/Units 13:55 13:55 13:55 WBC 4.8 (4.5-11.0) X10^3/uL RBC 3.95 L (4.5-5.9) X10^6/uL Hgb 13.3 L (13.5-17.5) g/dL Hct 38.9 L (41-53) % MCV 98.6 (80-100) fL MCH 33.7 (26-34) PG MCHC 34.2 (30-36) % RDW 12.5 (11.6-14.8) % Plt Count 186 (150-400) X10^3/uL Neut % (Auto) 52.1 (50-75) % Lymph % (Auto) 36.7 (25-40) % [place] % (Auto) 8.4 (3-14) % Eos % (Auto) 2.4 (2-4) % Baso % (Auto) 0.4 (0-2) % Neut # (Auto) 2500 (1205-4890) /uL Lymph # (Auto) 1800 (7234-5257) /uL [place] # (Auto) 400 (0-900) /uL Eos # (Auto) 100 (0-450) /uL Baso # (Auto) 0 (0-100) /uL PT 28.7 H (10.1-12.7) SECONDS INR 2.5 H (0.9-1.3) Sodium 140 (137-145) mmol/L Potassium 4.0 (3.4-5.1) mmol/L Chloride 107 (98-107) mmol/L Carbon Dioxide 23 (22-32) mmol/L BUN 31 H (9-20) mg/dL Creatinine 1.08 (0.66-1.25) mg/dL Estimated GFR > 60 (>60) mL/min BUN/Creatinine Ratio 28.7 H (6-22) Glucose 182 H (80-110) mg/dL Calcium 8.6 (8.4-10.2) mg/dL Total Bilirubin 1.1 (0.2-1.3) mg/dL AST 92 H (17-59) IU/L ALT 82 H (<50) IU/L Alkaline Phosphatase 69 (38-126) U/L Total Protein 7.2 (6.3-8.2) g/dL Albumin 4.1 (3.5-5.0) g/dL Globulin 3.1 (1.7-4.1) g/dL Albumin/Globulin Ratio 1.3 (1.0-2.8) Discharge Plan Departure Patient Disposition: Home Clinical Impression: Fall Instructions: How to Prevent Falls Activity Restrictions/Additional Instructions: You were evaluated in the ED for a fall that you sustained a week ago. We did a CT of the head and a CT of the chest abdomen pelvis. There were no acute findings from the scans. It appears that the wound on your left forearm is healing well without signs of infection. You may continue applying a antibiotic ointment and bandage with a nonstick dressing. Signs of infection would include worsening redness, swelling, warmth, discharge, pain. Return to the ED if you note any signs of infection. Please follow-up with your PCP as soon as possible. Prescriptions: No Action atorvastatin [Lipitor] 20 mg tablet 20 mg PO DAILY metoprolol succinate [Toprol XL] 50 mg tablet extended release 24 hr 50 mg PO DAILY amlodipine [Norvasc] 10 mg tablet 10 mg PO DAILY warfarin [Jantoven] 5 mg tablet 5 mg PO DAILY aspirin 81 mg Tablet 81 mg PO DAILY losartan [Cozaar] 100 mg tablet 100 mg PO DAILY metformin [Glucophage XR] 500 mg tablet extended release 24 hr 1,000 mg PO DAILY Stand Alone Forms: Patient Portal/API <Vernon Caballero MD - Last Filed: 09/29/22 07:18> Cosign ED Attending Cosignature Attestation: I was immediately available in the department for consultation. ?This documentation has been reviewed and I agree with assessment and plan. Supervised by Vernon Caballero MD
== END 2022-09-28 17:11 | disposition home or self-care (01) ==
PROVIDERS: Emergency Medicine; Emergency Provider Student in an Organized Health Care Education/Training Program; Family Provider Internal Medicine Cardiovascular Disease
DX: S50.812A Abrasion of left forearm, initial encounter (principal); S09.90XA Unspecified injury of head, initial encounter; R07.89 Other chest pain; W10.9XXA Fall (on) (from) unspecified stairs and steps, initial encounter; Z79.01 Long term (current) use of anticoagulants
CPT/HCPCS: 36415; 70450; 71260; 74177; 80053; 85025; 85610; 99281; 99284

== ENCOUNTER → 2024-01-19 10:17 | Outpatient (CLI) | payer MEDICARE, OTHER, SELFPAY ==
[2024-01-19 12:16] LABS: Estimated Glomerular Filt Rate > 60 mL/min (>60)
== END ==
PROVIDERS: Family Provider Internal Medicine Cardiovascular Disease; Referring Provider Radiology Diagnostic Radiology; Visit Provider Radiology Diagnostic Radiology
DX: I71.40 Abdominal aortic aneurysm, without rupture, unspecified (principal)
CPT/HCPCS: 36415; 82565

== ENCOUNTER → 2024-01-21 13:29 | Outpatient (CLI) | payer MEDICARE, OTHER, SELFPAY ==
--- NOTE | 2024-01-21 13:33 | DI.CT.S_ITS ---
PROCEDURE: CT ANGIO ABDOMEN PELVIS INDICATIONS: AAA TECHNIQUE: After the administration of intravenous contrast, 2.5 mm thick sections acquired from the diaphragm to the symphysis. 10 mm maximum-intensity projection (MIP) reformats were then acquired. For radiation dose reduction, the following was used: automated exposure control. COMPARISON: [facility], CT, CT CHEST ABD PEL W CON, 09/28/2022, 14:31. FINDINGS: Image quality: Diagnostic Lower chest: Basal atelectasis/scarring. Normal heart size. Coronary calcifications. Liver: Possible steatosis Gallbladder and biliary system: Cholelithiasis. Nondilated. Pancreas: No ductal dilation Spleen: Nonenlarged Adrenals: No discrete nodules Kidneys: No solid mass. No hydronephrosis. Asymmetric mild atrophy of the left kidney. Suspect small nonobstructing renal calculi, versus distal vascular calcifications. Vessels and lymph nodes: Aortoiliac stent graft. The excluded sac measures 9.8 x 7.8 cm, slightly larger than 2022. There is internal heterogeneity of the sac, but without definite contrast opacification on delayed images to suggest a brisk endoleak. The left common and external iliac branch is occluded as before, with a patent femoral-femoral bypass. Atherosclerotic calcifications are seen. The common femoral arteries appear patent. The main portal vein appears patent. No pathologic lymph nodes by size criteria. Bowel and peritoneum: No evidence of small bowel obstruction. No pathologic ascites. Numerous colonic diverticula. No evidence of active inflammation on CT. Body wall: Unremarkable Pelvis: Bladder is unremarkable. Prostate heterogeneous enhancement not well assessed on this study. Bones: There are degenerative changes. No acute or suspicious osseous finding. IMPRESSION: Aortoiliac stent graft. The excluded aneurysm sac is slightly larger than 2022, vascular follow-up is advised. No definite brisk endoleak seen on delayed images. Patent femoral-femoral bypass. The left common iliac and external iliac branch of the stent graft is occluded as before. Other findings above. Dictated by: Osmany Méndez M.D. on 01/21/2024 at 17:29 Approved by: Osmany Méndez M.D. on 01/21/2024 at 17:37
== END ==
LOC: CT 13:31
PROVIDERS: Family Provider Internal Medicine Cardiovascular Disease; PCP Internal Medicine; Referring Provider Surgery; Visit Provider Surgery
DX: I71.40 Abdominal aortic aneurysm, without rupture, unspecified (principal); J98.11 Atelectasis; K80.20 Calculus of gallbladder without cholecystitis without obstruction; I70.90 Unspecified atherosclerosis; N26.1 Atrophy of kidney (terminal); Z95.828 Presence of other vascular implants and grafts
CPT/HCPCS: 74174; Q9967

== ENCOUNTER → 2024-03-31 10:32 | Outpatient (CLI) | payer MEDICARE, OTHER, SELFPAY ==
--- NOTE | 2024-03-31 | DI.CT.S_ITS ---
PROCEDURE: CT ANGIO ABDOMEN PELVIS INDICATIONS: HX EVAR; F/U ON ANEURYSM SAC TECHNIQUE: After the administration of intravenous contrast, 2.5 mm thick sections acquired from the diaphragm to the symphysis. 10 mm maximum-intensity projection (MIP) reformats were then acquired. For radiation dose reduction, the following was used: automated exposure control. COMPARISON: [facility], CT, CT ANGIO ABDOMEN PELVIS, 01/21/2024, 13:39. FINDINGS: Image Quality: Diagnostic. Abdominal aorta: Redemonstration of aorta iliac stent graft with excluded aneurysmal sac measuring approximately 10 x 7.8 cm, previously 9.8 x 7.8 cm, not significantly changed. No definite contrast opacification is seen within the be excluded aneurysmal sac. Again seen is occlusion of the left common and external iliac branch as before with patent femoral-femoral bypass. Atherosclerotic vascular calcifications are present. Mesenteric arteries: Inferior mesenteric artery is not well visualized. Otherwise, patent without hemodynamically significant stenosis. Renal arteries: Patent without hemodynamically significant stenosis. OTHER: Lower Chest: Mild dependent atelectasis. Liver: No solid mass. Gallbladder: Cholelithiasis without CT evidence of acute cholecystitis. Biliary ducts: No biliary dilation. Pancreas: No ductal dilation. Spleen: Size is within normal limits. Adrenal Glands: No adrenal nodules. Kidneys and Ureters: Punctate nonobstructing calcifications bilaterally versus vascular calcifications. No hydronephrosis. No solid mass. No complex renal cystic lesion which requires follow up. Stomach and Bowel: Normal colonic caliber, without significant wall thickening. Diverticulosis without evidence of acute diverticulitis. Normal appendix. Peritoneum: No abnormal intraperitoneal fluid. No free air. Ventral Wall: No hernia. Abdominal Nodes: No retroperitoneal or mesenteric adenopathy by size criteria. Vessels: Aorta and inferior vena cava are normal in size. PELVIS: Pelvic Organs: Unremarkable. Bladder: Unremarkable. Pelvic Nodes: No enlarged lymph nodes. Miscellaneous: No inguinal hernias are seen. Small right inguinal fluid collection measuring 2.7 x 1.7 cm in the prior axis site. Bones: No aggressive osseous abnormality. Degenerative changes of the spine. Decreased osseous mineralization. IMPRESSION: Redemonstration of aorta iliac stent graft with stable appearance of excluded aneurysm sac as described above. No definite endoleak is identified. Patent femoral-femoral bypass with occlusion of the left common and external iliac branches of the stent graft. This is stable compared to prior. There is a small collection in the right inguinal region at the prior access site measuring up to 2.7 cm. No contrast opacification. Additional chronic findings as described above. Dictated by: Sergey Marcos M.D. on 03/31/2024 at 12:46 Approved by: Sergey Marcos M.D. on 03/31/2024 at 12:54
[2024-03-31 11:14] LABS: Estimated Glomerular Filt Rate > 60 mL/min (>60)
== END ==
PROVIDERS: Family Provider Internal Medicine Cardiovascular Disease; PCP Internal Medicine; Referring Provider Surgery; Visit Provider Surgery
DX: I97.89 Other postprocedural complications and disorders of the circulatory system, not elsewhere classified (principal); Z95.820 Peripheral vascular angioplasty status with implants and grafts
CPT/HCPCS: 36415; 74174; 82565; Q9967

== ENCOUNTER → 2024-07-11 12:01 | Outpatient (CLI) | payer MEDICARE, OTHER, SELFPAY ==
--- NOTE | 2024-07-11 | DI.RAD.S_ITS ---
PROCEDURE: XR KNEE RT 3V INDICATIONS: RIGHT KNEE PAIN TECHNIQUE: 3 views of the knee were acquired. COMPARISON: None. FINDINGS: Moderate severe degenerative changes of the right knee with joint space narrowing, osteophytes, some remodeling of the articular surfaces predominantly in the medial compartment, Kellgren Flynn grade 3-4 medial greater than patellofemoral greater than lateral compartments. Trace knee joint effusion. [id number] vascular calcifications. No radiographic evidence of acute fracture, dislocation or high attenuation soft tissue foreign body. IMPRESSION: Moderate to severe degenerative changes as discussed above. Dictated by: Diaz Hutton M.D. on 07/11/2024 at 13:27 Approved by: Diaz Hutton M.D. on 07/11/2024 at 13:28
== END ==
PROVIDERS: Family Provider Internal Medicine Cardiovascular Disease; PCP Internal Medicine; Referring Provider Internal Medicine; Visit Provider Internal Medicine
DX: M25.561 Pain in right knee (principal)
CPT/HCPCS: 73562

== ENCOUNTER → 2024-10-09 12:15 | Outpatient (CLI) | payer MEDICARE, OTHER, SELFPAY ==
--- NOTE | 2024-10-09 12:18 | DI.CT.S_ITS ---
PROCEDURE: CT ANGIO ABDOMEN PELVIS INDICATIONS: Other postprocedural complications and disorders o TECHNIQUE: Non-contrast 3 mm thick sections acquired from the diaphragm to the symphysis. After the administration of intravenous contrast, 2.5 mm thick sections acquired from the diaphragm to the symphysis during the arterial and venous phases. 10 mm maximum intensity projection (MIP) reformats were acquired of the arterial phase images. For radiation dose reduction, the following was used: automated exposure control. COMPARISON: [facility], CT, CT ANGIO ABDOMEN PELVIS, 03/31/2024, 11:26. FINDINGS: Image Quality: Diagnostic. Abdominal aorta: Stable position of the abdominal aortic endoluminal stent graft. Stable size of the residual aneurysm sac measuring 10.1 x 8.1 cm. No areas of abnormal contrast accumulation. There is also stable appearance of occlusion of the left iliac limb of the graft as well as the left iliac arteries, with a patent femoral femoral bypass graft. Mesenteric arteries: Stable atherosclerotic changes with mild to moderate stenosis proximally Renal arteries: Stable atherosclerotic changes with mild stenosis proximal OTHER: Lower Chest: No significant findings. Liver: No solid mass. Gallbladder: Again seen is cholelithiasis. Biliary ducts: No biliary dilation. Pancreas: No ductal dilation. Spleen: Size is within normal limits. Adrenal Glands: No adrenal nodules. Kidneys and Ureters: No hydronephrosis. No solid mass. No complex renal cystic lesion which requires follow up. Stomach and Bowel: Normal colonic caliber, without significant wall thickening. Peritoneum: No abnormal intraperitoneal fluid. No free air. Ventral Wall: No hernia. Abdominal Nodes: No retroperitoneal or mesenteric adenopathy by size criteria. Vessels: Inferior vena cava is normal in size. PELVIS: Pelvic Organs: Unremarkable. Bladder: Unremarkable. Pelvic Nodes: No enlarged lymph nodes. Miscellaneous: No inguinal hernias are seen. Bones: There is new moderate compression deformity of the T12 vertebral body, with significant cortical disruption anteriorly and sclerosis. IMPRESSION: 1. Stable size of the residual aneurysm sac measuring up to 10.1 cm. No signs of endoleak. 2. 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 3. Resolution of the previously seen fluid collection at the right femoral access site, no fluid collections seen at this time. 4. There is new burst fracture of the T12 vertebral body with moderate compression deformity, most likely acute to subacute. Dictated by: Hardeep Vogel M.D. on 10/09/2024 at 17:36 Approved by: Hardeep Vogel M.D. on 10/09/2024 at 17:46
[2024-10-09 12:50] LABS: Estimated Glomerular Filt Rate > 60 mL/min (>60)
== END ==
PROVIDERS: Family Provider Internal Medicine Cardiovascular Disease; PCP Internal Medicine; Referring Provider Surgery; Visit Provider Surgery
DX: I97.89 Other postprocedural complications and disorders of the circulatory system, not elsewhere classified (principal); I71.40 Abdominal aortic aneurysm, without rupture, unspecified; I74.5 Embolism and thrombosis of iliac artery; I70.1 Atherosclerosis of renal artery; I77.1 Stricture of artery; S22.081A Stable burst fracture of T11-T12 vertebra, initial encounter for closed fracture; K80.20 Calculus of gallbladder without cholecystitis without obstruction; Z95.828 Presence of other vascular implants and grafts
CPT/HCPCS: 36415; 74174; 82565; Q9967